=== PATIENT | female | born 1945 | race Caucasian/White ===

== ENCOUNTER → 2019-07-01 | Outpatient (CLI) | payer MEDICARE ==
--- NOTE | 2019-07-01 16:07 | PCVCIMAG ---
APPROVED REPORT Study performed: 07/01/2019 14:03:09 EXAM: Comprehensive 2D, Doppler, and color-flow Echocardiogram Patient Location: Echo lab Room #: 2Status: routine BSA: 1.72 HR: 83 bpmBP: 126/80 mmHg Rhythm: NSR Other Information Study Quality: Good Indications Aortic Valve Disease Rheumatic Fever Tachycardia Hx PSVT 2D Dimensions IVSd: 6.56 (7-11mm)LVOT Diam: 21.03 (18-24mm) LVDd: 46.84 mm PWd: 7.38 (7-11mm)Ascending Ao: 32.49 (22-36mm) LVDs: 33.76 (25-40mm) Left Atrium: 35.71 (27-40mm) Aortic Root: 26.57 mm LV Single Plane 4CH: 57.93 % LV Single Plane 2CH: 55.95 % Biplane EF: 57.4 % Volumes Left Atrial Volume (Systole) Single Plane 4CH: 45.58 mLSingle Plane 2CH: 42.98 mL Biplane LA Volume: 48.00 mLLA ESV Index: 28.00 mL/m2 Aortic Valve AoV Peak Santiago.: 1.33 m/s AO Peak Gr.: 7.57 mmHgLVOT Max P.30 mmHg LVOT Max V: 0.76 m/s COREY Vmax: 1.98 cm2 AI Vmax: 3.85 m/s AI Hardeman: 2.18 m/s2 AI PHT: 511.73 ms Mitral Valve E/A Ratio: 0.8 MV Decel. Time: 192.76 ms MV E Max Santiago.: 0.64 m/s MV A Santiago.: 0.83 m/s IVRT: 110.73 ms TDI E/Lateral E': 21.33E/Medial E': 10.67 Medial E' Santiago.: 0.06 m/s Lateral E' Santiago.: 0.03 m/s Tricuspid Valve TR Peak Santiago.: 2.34 m/s TR Peak Gr.: 21.85 mmHg TV Vmax: 0.61 m/sPA Pressure: 29.00 mmHg Left Ventricle The left ventricle is normal size. There is normal LV segmental wall motion. There is normal left ventricular wall thickness. Left ventricular systolic function is normal. The left ventricular ejection fraction is within the normal range. LVEF is 55-60%. Grade I - abnormal relaxation pattern. Right Ventricle The right ventricle is normal size. The right ventricular systolic function is normal. Atria The left atrium size is normal. The right atrium size is normal. Aortic Valve Aortic valve is trileaflet. Mild aortic valve sclerosis. Mild to moderate aortic regurgitation. There is no aortic valvular stenosis. Mitral Valve The mitral valve is normal in structure. Mild mitral regurgitation. No evidence of mitral valve stenosis. Tricuspid Valve The tricuspid valve is normal in structure. Mild tricuspid regurgitation with a PA pressure of 29 mmHg. Pulmonic Valve The pulmonary valve is normal in structure. There is no pulmonic valvular regurgitation. Great Vessels The aortic root is normal in size. The ascending aorta is normal in size. IVC is normal in size and collapses >50% with inspiration. Pericardium There is no pericardial effusion. There is no pleural effusion. <Conclusion> The left ventricle is normal size. There is normal left ventricular wall thickness. Left ventricular systolic function is normal. Grade I - abnormal relaxation pattern. The right ventricle is normal size. The left atrium size is normal. Mild aortic valve sclerosis. Mild to moderate aortic regurgitation. Mild mitral regurgitation. Mild tricuspid regurgitation with a PA pressure of 29 mmHg.
--- NOTE | 2019-07-01 16:26 | PCVCIMAG ---
APPROVED REPORT Study performed: 07/01/2019 14:50:55 Exam: Stress Echocardiogram Indication: Palpitations,PSVT,murmur Patient Location: Echo lab Stress Nurse: Dulce Mabry RN Room #: 2 Status: routine Ht: 5 ft 6 in HR: 81 bpm BP: 126/80 mmHg Rhythm: NSR Medical History Medical History: PSVT,rheumatic fever Medications: Metoprolol Previous Cardiac Procedures: none Pretest Chest Pain Characteristics: No chest pain Exercise History: Indeterminate Procedure The patient underwent an Exercise Stress Test using the Alistair Protocol. Blood pressure, heart rate, and EKG were monitored. An Echocardiogram was performed by cnc technician in four stages in quad fashion. At peak stress, four selected images were obtained and placed side by side with resting images for comparison. Stress Test Details Stress Test: Exercise stress testing was performed using a Alistair protocol. HR Resting HR: 81 bpmMax Heart Rate (APMHR): 148 bpm Max HR Achieved: 176 bpmTarget HR (85% APMHR): 125 bpm % of APMHR: 118 Recovery HR: 96 bpm HR response to stress: Normal HR response to stress BP Resting BP: 126/80 mmHg Max BP: 146/78 mmHg Recovery BP: 126/78 mmHg BP response to stress: Normal blood pressure response to stress. ECG Resting ECG: Sinus Rhythm Stress ECG: Sinus Rhythm, nonspecific ST-T abnormalities ST Change: Upsloping ST depression Maximum ST Deviation: -1.35 mm Arrhythmia: Non-sustained VT, SVT- up to 5 beats Recovery ECG: Sinus Rhythm Recovery ST Change: Upsloping ST depression Recovery ST Deviation: -1.0 mm Recovery Arrhythmia: Non-sustained ventricular tachycardia, SVT Clinical Reason for Termination: Maximal effort Stress Symptoms: FATIGUE Exercise duration: 5 min 00 sec Highest Stage Achieved: Stage 2: 2.5 mph at 12% grade. Exercise capacity: 7.0 METs Overall Exercise Capacity for Age: Poor Scale: Sedentary Angina Score: None No complications. Stress ECG Conclusion Abdul Treadmill Score is 11.8 which is Low risk. Pre-Stress Echo The resting Echocardiogram showed normal left ventricular contractility with an estimated Ejection Fraction of about 55-60%. The resting echocardiogram demonstrated normal wall motion in all wall segments. Normal wall motion in all segments on baseline images. Post-Stress Echo The stress Echocardiogram showed normal left ventricular contractility with an estimated Ejection Fraction of about 60-65%. Compared to rest, there were no stress-induced wall motion abnormalities. Normal augmentation of wall motion in all segments on post stress images. Clinical No clinical evidence for ischemia. Conclusion Clinical Response: Non-ischemic Exercise Capacity: Average Stress ECG Response: Equivocal Stress Echo Images: Non-ischemic Short runs of NS-VT and NS-SVT were seen post exercise(up to 5 beats). <Conclusion> Short runs of NS-VT and NS-SVT were seen post exercise(up to 5 beats).
== END | disposition home or self-care (01) ==
LOC: PCVCIMAG 13:47
PROVIDERS: ATTEND Family Medicine
DX: I08.3 Combined rheumatic disorders of mitral, aortic and tricuspid valves (principal); I47.1 Supraventricular tachycardia; R01.1 Cardiac murmur, unspecified; R00.2 Palpitations
CPT/HCPCS: 93306; 93351

== ENCOUNTER → 2019-07-28 | Outpatient (CLI) | payer MEDICARE | END | disposition home or self-care (01) | LOC: PCVCCLINIC 11:00 | PROVIDERS: ATTEND Internal Medicine Cardiovascular Disease | DX: I06.1 Rheumatic aortic insufficiency (principal); I47.1 Supraventricular tachycardia; I47.2 Ventricular tachycardia; R94.31 Abnormal electrocardiogram [ECG] [EKG] | CPT/HCPCS: 93005; G0463 ==